=== PATIENT | male | born 1960 | race Caucasian/White ===

== ENCOUNTER 2017-03-15 08:33 | Emergency (ER) | payer BC ==
[2017-03-15 08:55] VITALS: BMI 31.6
[2017-03-15 09:30] VITALS: BP 138/88; PULSE 90; RESP 16; TEMP 99; O2SAT 98
--- NOTE | 2017-03-15 10:09 | ED PDOC ---
HPI: Dental Pain/Injury Time Seen by Provider: 03/15/17 09:10 Chief Complaint (Nursing): Allergic Reaction Chief Complaint (Provider): Swelling to left face History Per: Patient History/Exam Limitations: no limitations Onset/Duration Of Symptoms: Days (1) Current Symptoms Are (Timing): Still Present Additional History Per: Patient Additional Complaint(s): 56yo male with no past medical history, presents to ED with complaints of "bumps " to his left face. Patient states on 03/13 he had tooth #24 pulled out and was given amoxicillin and pain medications. Patient states on 03/14 he noticed swelling to the left side of his face with bumps as well. Patient went to his dentist for a follow up and was informed to stop his amoxicillin regiment. Patient presents today with persistent bumps to his face, he denies any pain. No other complaints. Past Medical History Reviewed: Historical Data, Nursing Documentation, Vital Signs Vital Signs: Last Vital Signs Temp 99.0 F 03/15/17 08:55 Pulse 90 03/15/17 08:55 Resp 16 03/15/17 08:55 BP 138/88 03/15/17 08:55 Pulse Ox 98 03/15/17 08:55 - Medical History PMH: No Chronic Diseases - Surgical History Surgical History: No Surg Hx - Family History Family History: States: No Known Family Hx - Living Arrangements Living Arrangements: With Family - Home Medications Home Medications: Ambulatory Orders Medication Instructions Recorded Acyclovir [Zovirax] 800 mg PO 5XD #49 tab 03/15/17 - Allergies Allergies/Adverse Reactions: Allergies Allergy/AdvReac Type Severity Reaction Status Date / Time No Known Allergies Allergy Verified 03/15/17 08:54 Review of Systems ROS Statement: Except As Marked, All Systems Reviewed And Found Negative ENT: Positive for: Other (bumps to left face) Physical Exam - Reviewed Nursing Documentation Reviewed: Yes Vital Signs Reviewed: Yes - Physical Exam Appears: Positive for: Non-toxic, No Acute Distress Head Exam: Positive for: ATRAUMATIC, NORMAL INSPECTION, NORMOCEPHALIC Skin: Positive for: Rash (vesicular lesions to left face along V3 dermatome.) Eye Exam: Positive for: Normal appearance ENT: Positive for: Normal ENT Inspection, Other (minimal gingival edema near tooth 24. no activ bleeding, abscess or fluctuance.) Neck: Positive for: Supple Cardiovascular/Chest: Positive for: Regular Rate, Rhythm Respiratory: Positive for: Normal Breath Sounds. Negative for: Respiratory Distress Lymphatic: Positive for: Adenopathy (left anterior cervical) - ECG O2 Sat by Pulse Oximetry: 98 (RA) Pulse Ox Interpretation: Normal Medical Decision Making Medical Decision Making: Time: 940 Impression: Herpes zoster Plan: -- Patient to be given 1 dose of Acyclovie (800 mg) and discharged home with prescription for acyclovir. Informed to follow up with Dentist in 1-2 days. Scribe Attestation: Documented by Renetta Leblanc acting as a scribe for Iveth Valdez MD. Provider Attestation: All medical record entries made by the Scribe were at my direction and personally dictated by me. I have reviewed the chart and agree that the record accurately reflects my personal performance of the history, physical exam, medical decision making, and the department course for this patient. I have also personally directed, reviewed, and agree with the discharge instructions and disposition. Disposition - Clinical Impression Clinical Impression: Herpes zoster - Disposition Referrals: [facility] [Outside] Disposition: Routine/Home Disposition Time: 09:41 Condition: STABLE Additional Instructions: CONTINUE CURRENT MEDICATIONS. FOLLOW-UP WITH DENTIST WITHIN 2 DAYS FOR REEVALUATION. Prescriptions: Acyclovir [Zovirax] 800 mg PO 5XD #49 tab Instructions: Shingles (ED)
== END 2017-03-15 10:20 | disposition home or self-care (01) ==
LOC: H.ER 08:33
DX: B02.9 Zoster without complications (principal)

== ENCOUNTER 2017-03-27 09:49 | Emergency (ER) | payer BC ==
[2017-03-27 09:49] VITALS: BMI 31.6
[2017-03-27 10:32] VITALS: BP 130/82; PULSE 83; RESP 18; TEMP 98; O2SAT 99
[2017-03-27] MEDS ORDERED: Fluorescein 1 mg Ophthalmic Strip ONE (11:23)
--- NOTE | 2017-03-27 11:47 | ED PDOC ---
HPI: Skin/Bite Injury Time Seen by Provider: 03/27/17 10:33 Chief Complaint (Nursing): Abnormal Skin Integrity Chief Complaint (Provider): Abnormal skin integrity History Per: Patient History/Exam Limitations: no limitations Onset/Duration Of Symptoms: Days (x2 weeks) Current Symptoms Are (Timing): Still Present Location Of Injury: Left: Face Quality Of Symptoms: Painful Additional Complaint(s): Tavo Trejo is a 56 year old male, with no past medical history, who presents to the emergency department complaining of a rash on face and throat pain onset for x2 weeks. Patient was seen here x2 weeks ago and was diagnosed with shingles on left face and given Rx for acyclovir. Patient states he developed the left facial rash after he had a tooth extraction x2 weeks ago. At this time the rash started to get crusted with pain, patient ran out of pain medication prescribed by the dentist. Patient is now complaining of left facial pain and rash on left external ear with pain. Patient has been using acyclovir, amoxicillin prescribed by dentist, and some OTC cream but states he ran out of Percocet. No further medical complaints. PMD: None provided. Past Medical History Reviewed: Historical Data, Nursing Documentation, Vital Signs Vital Signs: Last Vital Signs Temp 98.0 F 03/27/17 10:29 Pulse 83 03/27/17 10:29 Resp 18 03/27/17 10:29 BP 130/82 03/27/17 10:29 Pulse Ox 99 03/27/17 12:12 - Surgical History Surgical History: No Surg Hx - Family History Family History: States: Unknown Family Hx - Social History Current smoker - smoking cessation education provided: No Alcohol: Social Drugs: Denies - Home Medications Home Medications: Ambulatory Orders Medication Instructions Recorded Acyclovir [Zovirax] 800 mg PO 5XD #49 tab 03/15/17 Ciprofloxacin/Dexamethasone 1 drop OT 5XD #1 bottle 03/27/17 [Ciprodex 0.3%-0.1% 7.5 Ml] oxyCODONE/Acetaminophen [Percocet 1 ea PO Q6 PRN #15 tab 03/27/17 5/325 mg Tab] - Allergies Allergies/Adverse Reactions: Allergies Allergy/AdvReac Type Severity Reaction Status Date / Time No Known Allergies Allergy Verified 03/15/17 08:54 Review of Systems ROS Statement: Except As Marked, All Systems Reviewed And Found Negative Constitutional: Positive for: Other (left facial rash and pain) ENT: Positive for: Ear Pain (left ear rash) Physical Exam - Reviewed Nursing Documentation Reviewed: Yes Vital Signs Reviewed: Yes - Physical Exam Appears: Positive for: Well (comfortable), Non-toxic, No Acute Distress Head Exam: Positive for: ATRAUMATIC, NORMAL INSPECTION Skin: Positive for: Normal Color, Warm, Dry Eye Exam: Positive for: Normal appearance, EOMI, PERRL, Other (Fluorescein exam , no corneal abrasion or abnormalities). Negative for: Nystagmus, Periorbital swelling, Periorbital tenderness, Conjunctival injection, Scleral icterus ENT: Positive for: TM Is/Are (normal. External auditory canal erythematous only. ), Other (Left external ear crusted ulcers). Negative for: Normal ENT Inspection ( Mouth exam: missing teeth s/p extraction on left lower jaw. No abnormal findings) Neck: Negative for: Normal (left cervical lymphadenopathy) Respiratory: Negative for: Respiratory Distress Extremity: Positive for: Normal ROM Neurologic/Psych: Positive for: Alert, Oriented (x3), Gait (steady). Negative for: date night caregiver II-XII, Motor/Sensory Deficits, Aphasia, Facial Droop - ECG O2 Sat by Pulse Oximetry: 99 (RA) Pulse Ox Interpretation: Normal Medical Decision Making Medical Decision Making: Initial Impression: Shingles, facial and on left external ear w/o involvement of the left eye Initial Impression: -Patient advised for follow-up with PMD and ENT specialist. 12:05 -Spoke with Dr. Blount, who recommends to continue acyclovir and ciprodex drops and follow up with him tomorrow. Scribe Attestation: Documented by Jason De Anda, acting as a scribe for David Lee MD Provider Scribe Attestation: All medical record entries made by the Scribe were at my direction and personally dictated by me. I have reviewed the chart and agree that the record accurately reflects my personal performance of the history, physical exam, medical decision making, and the department course for this patient. I have also personally directed, reviewed, and agree with the discharge instructions and disposition. Disposition - Clinical Impression Clinical Impression: Herpes zoster, Herpes zoster auricularis - Patient ED Disposition Is Patient to be Admitted: No Doctor Will See Patient In The: Office Counseled Patient/Family Regarding: Studies Performed, Diagnosis, Need For Followup - Disposition Referrals: Shan Cian MD [Staff Provider] - Disposition: Routine/Home Disposition Time: 12:10 Condition: GOOD Additional Instructions: Follow up with Dr Cain tomorrow. Take your medications as instructed. Prescriptions: Ciprofloxacin/Dexamethasone [Ciprodex 0.3%-0.1% 7.5 Ml] 1 drop OT 5XD #1 bottle oxyCODONE/Acetaminophen [Percocet 5/325 mg Tab] 1 ea PO Q6 PRN #15 tab PRN Reason: Pain, Severe (8-10) Instructions: Shingles (ED)
== END 2017-03-27 12:22 | disposition home or self-care (01) ==
LOC: H.ER 09:49
DX: B02.21 Postherpetic geniculate ganglionitis (principal)

== ENCOUNTER 2017-04-05 10:06 | Emergency (ER) | payer BC ==
[2017-04-05 10:07] VITALS: BMI 31.6
[2017-04-05 10:25] VITALS: BP 138/85; PULSE 83; RESP 21; TEMP 98.9; O2SAT 99
--- NOTE | 2017-04-05 10:41 | ED PDOC ---
HPI: CCC, URI, Sore Throat Time Seen by Provider: 04/05/17 10:16 Chief Complaint (Nursing): ENT Problem Chief Complaint (Provider): Ear pain History Per: Patient Additional Complaint(s): 56 yo male, denies nay PMH, presents to ED with complaints of intermittent episodes of left ear pain that has continued despite "recovering" from shingles 2 weeks ago. Pt completed course of Acyclovir and Percocet. has been taking Motrin without much relief. Past Medical History Reviewed: Nursing Documentation, Vital Signs Vital Signs: Last Vital Signs Temp 98.9 F 04/05/17 10:10 Pulse 83 04/05/17 10:10 Resp 21 04/05/17 10:10 BP 138/85 04/05/17 10:10 Pulse Ox 99 04/05/17 10:41 - Medical History PMH: No Chronic Diseases - Surgical History Surgical History: No Surg Hx - Family History Family History: States: Unknown Family Hx - Living Arrangements Living Arrangements: With Family - Social History Current smoker - smoking cessation education provided: No Alcohol: Social Drugs: Denies - Home Medications Home Medications: Ambulatory Orders Medication Instructions Recorded Acyclovir [Zovirax] 800 mg PO 5XD #49 tab 03/15/17 Ciprofloxacin/Dexamethasone 1 drop OT 5XD #1 bottle 03/27/17 [Ciprodex 0.3%-0.1% 7.5 Ml] oxyCODONE/Acetaminophen [Percocet 1 ea PO Q6 PRN #15 tab 03/27/17 5/325 mg Tab] Methylprednisolone [Medrol Dose 4 mg PO DAILY #21 mg 04/05/17 Pack (21 tabs)] oxyCODONE/Acetaminophen [Percocet 1 ea PO Q6 PRN #5 tab 04/05/17 5/325 mg Tab] - Allergies Allergies/Adverse Reactions: Allergies Allergy/AdvReac Type Severity Reaction Status Date / Time No Known Allergies Allergy Verified 04/05/17 10:18 Review of Systems ROS Statement: Except As Marked, All Systems Reviewed And Found Negative ENT: Positive for: Ear Pain Physical Exam - Reviewed Nursing Documentation Reviewed: Yes Vital Signs Reviewed: Yes - Physical Exam Appears: Positive for: Well, Non-toxic, No Acute Distress Head Exam: Positive for: ATRAUMATIC, NORMAL INSPECTION, NORMOCEPHALIC Skin: Positive for: Normal Color, Warm. Negative for: Rash Eye Exam: Positive for: EOMI, Normal appearance, PERRL ENT: Positive for: TM Is/Are (WNL), Other ((+) TMJ tenderness). Negative for: Pharyngeal Erythema, Tonsillar Exudate, Tonsillar Swelling Neck: Positive for: Normal, Painless ROM Cardiovascular/Chest: Positive for: Regular Rate, Rhythm Respiratory: Positive for: CNT, Normal Breath Sounds Gastrointestinal/Abdominal: Positive for: Normal Exam, Bowel Sounds, Soft Back: Positive for: Normal Inspection Extremity: Positive for: Normal ROM Neurologic/Psych: Positive for: Alert, Oriented - ECG O2 Sat by Pulse Oximetry: 99 Disposition - Clinical Impression Clinical Impression: Post herpetic neuralgia - Patient ED Disposition Is Patient to be Admitted: No - Disposition Disposition: Routine/Home Disposition Time: 12:32 Condition: STABLE Prescriptions: Methylprednisolone [Medrol Dose Pack (21 tabs)] 4 mg PO DAILY #21 mg oxyCODONE/Acetaminophen [Percocet 5/325 mg Tab] 1 ea PO Q6 PRN #5 tab PRN Reason: Pain, Severe (8-10) Instructions: Complications of Infection (GEN), Shingles (ED) Forms: [employer] (Belarusian)
== END 2017-04-05 11:30 | disposition home or self-care (01) ==
LOC: H.ER 10:06
DX: B02.29 Other postherpetic nervous system involvement (principal)

== ENCOUNTER 2017-04-11 08:09 | Emergency (ER) | payer BC ==
[2017-04-11 08:14] VITALS: PULSE 82; TEMP 98; O2SAT 99
[2017-04-11 08:15] VITALS: BMI 29.9
--- NOTE | 2017-04-11 08:51 | ED PDOC ---
HPI: General Adult Time Seen by Provider: 04/11/17 08:15 Chief Complaint (Nursing): Pain, Chronic Chief Complaint (Provider): Left-Sided Facial Pain History Per: Patient History/Exam Limitations: no limitations Onset/Duration Of Symptoms: Days (x2 wks) Additional Complaint(s): Tavo Trejo is a 56 year old male with a history of shingles that presents to the ED with a chief complaint of left-sided facial pain that he has been experiencing for the past two weeks. Patient reports that this is his second visit to the ED in the past two weeks for the same issue, which began with shingles. He states that the swelling has decreased, but the pain remains. Rash from shingles is still present on left side of face. Patient additionally states that he had an AirVisit last night to follow up on his last visit and was advised to return to ED today if his pain persists, which prompted his visit. Of Note: Patient was given Rx for Codeine, 15 tabs, on 03/27/17, and given Rx for Oxycodone on 04/05/17, of which he has used 6 tabs. (Total 21 tabs used in past 2 wks) Past Medical History Reviewed: Historical Data, Nursing Documentation, Vital Signs Vital Signs: Last Vital Signs Temp 98 F 04/11/17 08:14 Pulse 82 04/11/17 08:14 Resp 18 04/11/17 10:25 BP 139/89 04/11/17 10:25 Pulse Ox 99 04/11/17 09:32 - Medical History Other PMH: shingles - Family History Family History: States: Unknown Family Hx - Social History Alcohol: Social - Home Medications Home Medications: Ambulatory Orders Medication Instructions Recorded Acyclovir [Zovirax] 800 mg PO 5XD #49 tab 03/15/17 Ciprofloxacin/Dexamethasone 1 drop OT 5XD #1 bottle 03/27/17 [Ciprodex 0.3%-0.1% 7.5 Ml] oxyCODONE/Acetaminophen [Percocet 1 ea PO Q6 PRN #15 tab 03/27/17 5/325 mg Tab] Methylprednisolone [Medrol Dose 4 mg PO DAILY #21 mg 04/05/17 Pack (21 tabs)] oxyCODONE/Acetaminophen [Percocet 1 ea PO Q6 PRN #5 tab 04/05/17 5/325 mg Tab] Gabapentin [Neurontin] 400 mg PO BID #6 cap 04/11/17 - Allergies Allergies/Adverse Reactions: Allergies Allergy/AdvReac Type Severity Reaction Status Date / Time No Known Allergies Allergy Verified 04/11/17 08:18 Review of Systems ENT: Positive for: Other (left-sided facial pain) Skin: Positive for: Rash (left-sided facial rash) Physical Exam - Reviewed Nursing Documentation Reviewed: Yes Vital Signs Reviewed: Yes - Physical Exam Appears: Positive for: Non-toxic, No Acute Distress Head Exam: Positive for: ATRAUMATIC Skin: Positive for: Normal Color, Warm, Rash (residual rash to left side of face ) Eye Exam: Positive for: Normal appearance, EOMI, PERRL Cardiovascular/Chest: Positive for: Regular Rate, Rhythm. Negative for: Murmur Respiratory: Positive for: Normal Breath Sounds. Negative for: Wheezing Neurologic/Psych: Positive for: Alert, Oriented. Negative for: Motor/Sensory Deficits - ECG O2 Sat by Pulse Oximetry: 99 (RA) Pulse Ox Interpretation: Normal Medical Decision Making Medical Decision Making: Impression: Nerve Pain Plan: * Neurontin 400 mg PO * Toradol 60 mg PO * Reevaluation 9:23 Patient declined Toradol, and reports improvement in symptoms. Gave patient Rx for Neurontin and gave referral to follow up with neurologist Dr. Gutierrez. Patient stable for discharge. Scribe Attestation: Documented by Jenna Hamilton, acting as a scribe for You Srinivasan MD. Provider Scribe Attestation: All medical record entries made by the Scribe were at my direction and personally dictated by me. I have reviewed the chart and agree that the record accurately reflects my personal performance of the history, physical exam, medical decision making, and the department course for this patient. I have also personally directed, reviewed, and agree with the discharge instructions and disposition. Disposition - Clinical Impression Clinical Impression: Nerve pain, Post herpetic neuralgia - Patient ED Disposition Is Patient to be Admitted: No Counseled Patient/Family Regarding: Studies Performed, Diagnosis, Need For Followup - Disposition Referrals: [facility] [Outside] Alexei Gutierrez MD [Medical Doctor] - Disposition: Routine/Home Disposition Time: 09:23 Condition: IMPROVED Additional Instructions: follow up with your primary doctor in 1- 2 days return to the ED with any worsening or concerning symptoms Prescriptions: Gabapentin [Neurontin] 400 mg PO BID #6 cap Instructions: Shingles (ED) Forms: [employer] (Lebanese)
[2017-04-11 10:27] VITALS: BP 139/89; RESP 18
== END 2017-04-11 10:25 | disposition home or self-care (01) ==
LOC: H.ER 08:09
DX: B02.29 Other postherpetic nervous system involvement (principal); Z86.19 Personal history of other infectious and parasitic diseases